=== PATIENT | female | born 1985 | race Caucasian/White ===

== ENCOUNTER 2016-12-10 05:57 | Inpatient (IN) | payer OTHER ==
[~2016-12-10] VITALS: Ht 162.6 cm; Wt 114.3 kg
[2016-12-10 09:19] VITALS: BP 106/53
[2016-12-10] MEDS ORDERED: PRENATABS RX T1 EACH PO (09:27)
[2016-12-11 07:54] LABS: ABSOLUTE BASOPHIL COUNT 0 /CUMM (0.0-0.2); ABSOLUTE EOSINOPHIL COUNT 0 /CUMM (0.0-0.7); ABSOLUTE GRANULOCYTE CT 6.8 /CUMM (1.4-6.5); ABSOLUTE LYMPH COUNT 1.9 /CUMM (1.2-3.4); ABSOLUTE MONOCYTE COUNT 0.9 /CUMM (0.10-0.60); BASOPHIL % 0.3 % (0.0-2.0); EOSINOPHIL % 0.5 % (0-5); GRANULOCYTE % 69.9 % (42.2-75.2); HEMATOCRIT 34.7 % (37-47); MEAN CORPUSCULAR HGB 30.9 PG (27.0-31.0); MEAN CORPUSCULAR HGB CONC 34.1 G/DL (33.0-37.0); MEAN CORPUSCULAR VOLUME 90.6 FL (81.0-99.0); MEAN PLATELET VOLUME 9.9 FL (7.4-10.4); PLATELET COUNT 166 /CUMM (130-400); RBC DISTRIBUTION WIDTH 13.5 % (11.5-14.5); RED BLOOD CELL CT 3.83 /CUMM (4.20-5.40); WHITE BLOOD CELL COUNT 9.8 /CUMM (4.8-10.8)
--- NOTE | 2016-12-11 08:14 | PN- Post Delivery/GYN ---
Subjective Subjective: NO COMPLAINTS +FLATUS Objective Last 24 Hrs of Vital Signs/I&O Vital Signs Date Time Temp Pulse Resp B/P Pulse O2 O2 Flow FiO2 Ox Delivery Rate 12/10 0919 106/53 Physical Exam: PLEASANT WF IN NAD ABD SOFT NT LOCHIA MINIMAL Assessment/Plan Assessment/Plan ASSESS S/P C/S PLAN CONT POC
--- NOTE | 2016-12-11 09:24 | Operative Report ---
Operative/Inv Procedure Report Surgery Date: 12/10/16 Name of Procedure: Primary low flap transverse section via Pfannenstiel skin incision Pre-Operative Diagnosis: Macrosomia Post-Operative Diagnosis: Macrosomia Estimated Blood Loss: 500 Surgeon/Green Inspector: LELE SMALLWOOD,AMOL Faye and Dr. Watson Anesthesia: general endotracheal tube (spinal narcotic), block Operative/Procedure Note Note: Procedure note patient was taken the operating room placed prone position after adequate anesthesia patient placed in dorsolithotomy position the vagina from dorsal fashion bladder was catheterized examination under anesthesia performed on at this point Lehman was placed patient was returned spine position skin testing performed found to be adequate for surgery at this point the patient was returned spine position on the skin was cut carried down to rectus fascia was cut in curvilinear fashion I direction peritoneal cavity was entered high into the abdomen the low bladed Comfort was placed and lower and incision a protect the bladder a bladder flap was developed the bladder blade was replaced in the lower uterine segment uses nicked into with back knife clear fluid was noted on since removed from the field the incision was dissected bluntly is and the incision was extended over the abdominal wall the infant was delivered free of I any instruments the cord was doubly clamped and cut and was handed guard manager was waiting delivering to aid in resuscitation placenta was delivered manually noted to be intact was wiped clean with 2 wet dry last insurance free of her membranes the uterus was oversewn running locking sutures after intravenous Pitocin as well as intramyometrial Pitocin was used to aid in uterine contractility I at this point uterus was turned to abdominal cavity found to be hemostatic the peritoneum was reapproximated 0 the fascia was reapproximated to continue sutures #1 skin was reapproximated using danyel after Bovie coagulation substance tissue the urine was clear the counts correct mother and left the OR together I thank you
[2016-12-12] MEDS ORDERED: IBUPROFEN800 M1 PO (09:39)
[2016-12-12] MEDS ORDERED: PERCOCET 5-3251 EACH PO (09:39)
--- NOTE | 2017-01-10 12:29 | Surgical Discharge Summary ---
Visit Information Visit Dates Admission Date: 12/10/16 Discharge Date: 12/12/16 History of Present Illness Chief Complaint: She choice section Surgical History Pertinent Surgical History: none Psychosocial History What is Your Primary Language? [place] Review of Systems: -13 point review of systems as stated in the HPI Hospital Course Course Attending Physician: AMOL ROYAL MD Primary Care Physician: PATIENT HAS NO PRIMARY CARE DR Hospital Course: Patient was admitted for primary low flap transverse section she did well she bonded well with her first postoperative day on the second postoperative day she was out of bed and tolerating regular diet bonded well with her infant and on third postoperative day she was discharged home with the following is going exam she's a pleasant white female HEENT anicteric lungs clear heart S1 and S2 abdomen soft incision clean dry and intact extremities negative edema negative Homans Allergies: Coded Allergies: Sulfa (Sulfonamide Antibiotics) (UNKNOWN 12/10/16) Disposition Summary Disposition Principal Diagnosis: Status post primary low flap transverse section Additional Diagnosis: Anemia Discharge Disposition: home or self care Discharge Instructions General Discharge Information Code Status: Full Code Patient's Diet: Regular Patient's Activity: Pelvic rest nothing in vagina for 6 weeks no heavy lifting for Follow-Up Instructions/Appts: And we Parlin removed return nurses visit in 2 weeks in my office for visit Medications at Discharge Discharge Medications: Continue taking these medications: Vit #76/Iron,Carb/FA (Prenatabs Rx Tablet) 29 MG IRON-1 MG TABLET 1 Tablet ORAL DAILY Start taking the following new medications: Ibuprofen (Ibuprofen) 800 MG TABLET 800 Milligram ORAL EVERY SIX HOURS NEEDED as needed for PAIN SCALE 4-6 ( MODERATE) Qty = 30 No Refills Oxycodone HCl/Acetaminophen (Percocet 5-325 MG Tablet) 5 MG-325 MG TABLET 1 Tablet ORAL EVERY 4 HOURS NEEDED as needed for PAIN SCALE 4-6 (MODERATE ) Qty = 30 No Refills
== END 2016-12-12 12:37 | DRG 766 ==
LOC: GNO 05:57
PROVIDERS: ADMIT Specialist
PROC: 10D00Z1 Extraction of Products of Conception, Low, Open Approach (ICD-10-PCS; principal; 2016-12-10)
DX: O36.63X0 Maternal care for excessive fetal growth, third trimester, not applicable or unspecified (principal); Z37.0 Single live birth; Z3A.41 41 weeks gestation of pregnancy
CPT/HCPCS: GNOS; 87086; J0690; J1650; J1885; J7120